=== PATIENT | female | born 1965 | race Caucasian/White ===

== ENCOUNTER → 2020-02-19 14:17 | Outpatient (BNVA) | payer MEDICARE, MEDICAID, SELFPAY | PROVIDERS: Family Provider Nurse Practitioner Family; PCP Nurse Practitioner Family; Visit Provider Urology | DX: C67.0 Malignant neoplasm of trigone of bladder (principal); R33.8 Other retention of urine; N20.2 Calculus of kidney with calculus of ureter | CPT/HCPCS: 81001 ==

== ENCOUNTER → 2020-06-05 13:03 | Outpatient (BNVA) | payer MEDICARE, MEDICAID, SELFPAY | PROVIDERS: Family Provider Nurse Practitioner Family; PCP Nurse Practitioner Family; Referring Provider Dermatology; Visit Provider Dermatology | DX: B35.1 Tinea unguium (principal); D48.9 Neoplasm of uncertain behavior, unspecified; D23.9 Other benign neoplasm of skin, unspecified; L85.8 Other specified epidermal thickening; Z12.83 Encounter for screening for malignant neoplasm of skin | CPT/HCPCS: 11102; 88304; 88305; 99203; 99204 ==

== ENCOUNTER → 2020-06-11 13:10 | Outpatient (BNVA) | payer MEDICARE, MEDICAID, SELFPAY | PROVIDERS: Family Provider Nurse Practitioner Family; PCP Nurse Practitioner Family; Visit Provider Urology | DX: C67.0 Malignant neoplasm of trigone of bladder (principal) | CPT/HCPCS: 81001 ==

== ENCOUNTER → 2021-02-12 10:16 | Outpatient (BNVA) | payer MEDICARE, MEDICAID, SELFPAY | PROVIDERS: Family Provider Nurse Practitioner Family; PCP Nurse Practitioner Family; Visit Provider Urology | DX: C67.0 Malignant neoplasm of trigone of bladder (principal) | CPT/HCPCS: 81003 ==

== ENCOUNTER 2021-03-06 09:17 | Outpatient (CLI) | payer MEDICARE, MEDICAID, SELFPAY ==
--- NOTE | 2021-03-06 09:20 | MM_ITS ---
WS: [id number] BILATERAL SCREENING DIGITAL MAMMOGRAM WITH CAD HISTORY: SCREENING COMPARISON: 09/18/2019 and 09/24/2015 Bilateral CC and MLO views submitted. Computer aided detection analyzed. Breast composition: The breasts are heterogeneously dense, which may obscure small masses. No suspici ous masses, microcalcifications or architectural distortion. Benign calcifications in each breast. Th e asymmetries are stable over several prior years. MM/[place] [id number] IMPRESSION: BI-RADS: 2-Benign FOLLOW UP: 1 Year Follow-up
== END 2021-03-06 09:18 | disposition home or self-care (01) ==
PROVIDERS: Family Provider Nurse Practitioner Family; PCP Nurse Practitioner Family; Visit Provider Family Medicine
DX: Z12.31 Encounter for screening mammogram for malignant neoplasm of breast (principal)
CPT/HCPCS: 77067

== ENCOUNTER → 2021-08-17 09:14 | Outpatient (BNVA) | payer MEDICARE, MEDICAID, SELFPAY | PROVIDERS: Family Provider Nurse Practitioner Family; PCP Nurse Practitioner Family; Visit Provider Urology | DX: C67.0 Malignant neoplasm of trigone of bladder (principal) | CPT/HCPCS: 81003 ==

== ENCOUNTER → 2022-02-25 13:13 | Outpatient (BNVA) | payer MEDICARE, MEDICAID, SELFPAY | PROVIDERS: Family Provider Nurse Practitioner Family; PCP Nurse Practitioner Family; Visit Provider Urology | DX: C67.0 Malignant neoplasm of trigone of bladder (principal); N20.2 Calculus of kidney with calculus of ureter | CPT/HCPCS: 52000; 81003 ==

== ENCOUNTER 2022-09-07 13:07 | Outpatient (CLI) | payer MEDICARE, MEDICAID, SELFPAY ==
--- NOTE | 2022-09-07 13:25 | XR_ITS ---
WS: [id number] Exam: XR KUB [id number] Date/Time of Exam: 09/07/2022 1:26 PM Reason For Exam: stones No bowel obstruction or free air. Tiny calcification superimpose both kidneys apparently representing known renal stones. No sign of organ enlargement. Signs of prior cholecystectomy. Bony structures ar e intact. XR/XR KUB [id number] IMPRESSION: 1. No acute abdominal process. 2. Small calcification superimpose both kidneys and apparently represent known renal stones. 3. Diffuse small nonspecific bilateral pelvic calcifications.
== END 2022-09-07 13:08 | disposition home or self-care (01) ==
LOC: RAD 13:10
PROVIDERS: PCP Nurse Practitioner Family; Visit Provider Urology
DX: N20.9 Urinary calculus, unspecified (principal)
CPT/HCPCS: 52000; 74018

== ENCOUNTER 2022-09-29 10:05 | Outpatient (CLI) | payer MEDICARE, MEDICAID, SELFPAY ==
--- NOTE | 2022-09-29 10:14 | CT_ITS ---
WS: [id number] LDCT LUNG CANCER SCREENING HISTORY: HX OF TOBACCO USE TECHNIQUE: Axial imaging performed from the apices to 1 cm below the costophrenic angles. Coronal and sagittal reformats are submitted with axial MIP series. All CT scans at [facility] use at least one of these dose optimization techniques: automated exposure control; mA and/or kV adjustment per patient size (includes targeted exams where dose is matched to clinical indication); or iterativ e reconstruction. DLP: 80.71 mGy.cm DIvol: Mean CTDIvol: 1.60 (mGy) COMPARISON: None available. Diagnostic quality: Satisfactory Lung Nodules: 2 mm LEFT upper lobe nodule along the fissure with pleural tagging. These are typically benign. No pulmonary nodules or endobronchial lesion. Lungs: No abnormality. Heart: Normal size heart. No pericardial effusion. Other findings: Stent in the LEFT anterior descending coronary artery. Very minimal atherosclerosis t horacic aorta. Normal size pulmonary artery. Small hiatal hernia. Prior cholecystectomy. Bilateral no nobstructing renal calcifications. Splenic granulomata. CT/CT lung screening [id number] IMPRESSION: LUNG-RADS: 2-Benign Appearance or Behavior FOLLOW UP: 12 Month: Continue annual screening with LDCT OTHER FINDINGS (S MODIFIER): None.
== END 2022-09-29 10:06 | disposition home or self-care (01) ==
PROVIDERS: PCP Nurse Practitioner Family; Visit Provider Family Medicine
DX: Z12.2 Encounter for screening for malignant neoplasm of respiratory organs (principal); Z87.891 Personal history of nicotine dependence
CPT/HCPCS: 71271

== ENCOUNTER 2023-01-07 10:03 | Outpatient (CLI) | payer MEDICARE, MEDICAID, SELFPAY ==
--- NOTE | 2023-01-07 10:11 | MM_ITS ---
WS: [id number] SCREENING DIGITAL BREAST TOMOSYNTHESIS MAMMOGRAM WITH CAD HISTORY: SCREENING COMPARISON: 03/06/2021 and 09/18/2019 Bilateral CC and MLO with tomosynthesis and synthetic mammography submitted. Computer aided detection analyzed. Breast composition: The breasts are extremely dense, which lowers the sensitivity of mammography. Pos tsurgical clips in the anterior RIGHT breast. Benign bilateral breast calcifications. Focal area of a rchitectural distortion seen best on the LEFT MLO projection in the anterior breast, just posterior t o the nipple. This needs further evaluation. MM/[place] [id number] IMPRESSION: BI-RADS: 0-Incomplete: Need additional imaging evaluation FOLLOW UP: Need Additional Imaging LEFT breast: Spot compression views (CC and MLO). True ML. Ultrasound to follow if abnormality persists.
== END 2023-01-07 10:04 | disposition home or self-care (01) ==
PROVIDERS: PCP Nurse Practitioner Family; Visit Provider Nurse Practitioner Family
DX: Z12.31 Encounter for screening mammogram for malignant neoplasm of breast (principal)
CPT/HCPCS: 77063; 77067

== ENCOUNTER → 2023-03-10 14:17 | Outpatient (BNVA) | payer MEDICARE, MEDICAID, SELFPAY | PROVIDERS: PCP Nurse Practitioner Family; Visit Provider Urology | DX: N20.9 Urinary calculus, unspecified (principal) | CPT/HCPCS: 81003 ==

== ENCOUNTER 2023-08-05 11:35 | Outpatient (CLI) | payer MEDICARE, SELFPAY ==
--- NOTE | 2023-08-05 11:44 | US_ITS ---
WS: [id number] RENAL ULTRASOUND URINARY BLADDER ULTRASOUND HISTORY: HEMATURIA COMPARISON: None available. TECHNIQUE: 2-D and color Doppler imaging of the kidney submitted. Right kidney: 11.3 cm x 4.8 cm x 5.0 cm. Normal echogenicity with no hydronephrosis or mass. Left kidney: 11.4 cm x 4.9 cm x 4.7 cm. Normal echogenicity with no hydronephrosis or mass. Aorta: Normal. Urinary Bladder: Normal distention. Urinary bladder is well distended. There are no intraluminal fill ing defects. No mass. No post void residual after voiding. IMPRESSION: 1. No renal mass or obstruction. 2. Normal urinary bladder. No intraluminal mass identified. 3. No post void residual.
== END 2023-08-05 11:36 | disposition home or self-care (01) ==
PROVIDERS: PCP Nurse Practitioner Family; Visit Provider Nurse Practitioner Family
DX: R31.9 Hematuria, unspecified (principal)
CPT/HCPCS: 76770; 76857

== ENCOUNTER 2023-09-15 18:13 | Emergency (ER) | payer MEDICARE, SELFPAY ==
[2023-09-15 18:15] VITALS: BP 156/73; PULSE 62; RESP 17; TEMP 37; O2SAT 98; BMI 23.3
--- NOTE | 2023-09-15 18:27 | XRR_ITS ---
PROCEDURE INFORMATION: Exam: XR Abdomen Exam date and time: 09/15/2023 6:46 PM Age: 57 years old Clinical indication: Abdominal pain; Right; Prior surgery; Surgery date: 6+ months; Surgery type: Hysterectomy, cholecystectomy, turbt; Patient HX: RT flank pain; HX kidney stones, bladder cancer TECHNIQUE: Imaging protocol: Radiologic exam of the abdomen. Views: Frontal supine view of the abdomen. 1 View. COMPARISON: CR XR KUB [id number] 09/07/2022 1:39 PM FINDINGS: Gastrointestinal tract: Normal. No bowel dilation. Bones/joints: Unremarkable. XR/XR KUB [id number] IMPRESSION: No acute findings.
--- NOTE | 2023-09-15 18:40 | W.ED.FEMALGU ---
HPI - Female Genitourinary General: Chief complaint: Urogenital-Female Stated complaint: ABD Pain Time Seen by Provider: 09/15/23 18:36 Source: patient Mode of arrival: ambulatory Limitations: no limitations History of Present Illness: 57-year-old female with a history of kidney stones states over the last 2 days she been having right-sided flank pain along with vomiting. States pain sharp in nature rates it a 6 out of 10 states she is mainly concerned she may get dehydrated as she has not been tolerating much p.o. She had seen urologist last week had a CT scan that showed stones in her kidneys not in the ureter at that time. She denies any fevers denies any worsening improving factors. 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 Occasional superficial recurrence fulgurated in clinic She quit smoking. Cervical disc disorder with myelopathy of mid-cervical region Urolithiasis Both renal and ureteral stones historically. Surgical intervention required for ureteral calculi Surgical History History of delivery History of heart artery stent History of lumpectomy History of partial hysterectomy History of thyroidectomy, total History of transurethral destruction of bladder lesion Family History Mother , AT AGE 83 BRAIN ANEURYSM No problems noted. Father , AT AGE 88, [place] Stroke Social History Smoking and tobacco/nicotine status: current every day tobacco/nicotine user e-cigarettes Alcohol intake: never Adopted: No Caregiver/support person: No Lives independently: No Household members: spouse Marital status: Current occupational status: disabled Physical Exam Const: COMMON NORMALS: no acute distress, patient oriented x3 and healthy appearing HENMT: COMMON NORMALS: normocephalic and atraumatic HEAD & SCALP: normocephalic and atraumatic Eye: COMMON NORMALS: conjunctivae normal CONJUNCTIVA: Yes conjunctivae normal Neck/C-Spine: COMMON NORMALS: full ROM and supple Chest: COMMONS NORMALS: normal inspection of the chest Resp: COMMON NORMALS: normal respiratory effort Cardio: COMMON NORMALS: regular rate, regular rhythm and No murmurs present (Cardio) RATE: regular rate RHYTHM: regular rhythm GI: COMMON NORMALS: Normal to inspection, nondistended, normoactive bowel sounds present, Soft to palpation, non-tender and no masses PALPATION: Yes Soft to palpation Extremity: COMMON NORMALS: normal to inspection and full ROM Neuro: COMMON NORMALS: patient oriented x3, moves all extremities and no focal motor deficits Psych: COMMON NORMALS: mental status grossly normal, Normal thought process present and cooperative THOUGHT PROCESS: Normal thought process present Skin: COMMON NORMALS: no rashes or lesions noted and no wounds GENERAL SKIN EXAM: no rashes or lesions noted Course Vital Signs: Vital signs: Vital Signs Temperature 98.6 F 09/15/23 21:06 Pulse Rate 70 09/15/23 21:06 Respiratory Rate 16 09/15/23 21:06 Blood Pressure 119/71 09/15/23 21:06 Pulse Oximetry 96 09/15/23 21:06 Oxygen Delivery Me thod Room Air 09/15/23 18:15 MDM - Female Medical Decision Making Patient presents here with flank pain likely from a kidney stone she has no UTI her pain is improved here we will prescribe her pain meds she is to follow-up with her urologist at [facility] return if worsening she understands agrees plan Medical Records I reviewed the patient's medical records. Lab Data I reviewed the patient's lab results. 09/15/23 18:59 09/15/23 18:59 Radiology Impressions KUB X-Ray 09/15/23 18:27 IMPRESSION: No acute findings. Laboratory Results WBC 13.05 10^3/uL (3.29-11.43) H 09/15/23 18:59 RBC 4.62 10^6/uL (3.85-5.65) 09/15/23 18:59 Hgb 14.70 g/dL (11.27-16.99) 09/15/23 18:59 Hct 45.1 % (36-47) 09/15/23 18:59 MCV 97.6 fl (85-98) 09/15/23 18:59 MCH 31.8 pg (27-33) 09/15/23 18:59 MCHC 32.6 g/dL (30-55) 09/15/23 18:59 RDW 13.1 % (12.1-15.1) 09/15/23 18:59 Plt Count 308 10^3/cmm (157-399) 09/15/23 18:59 MPV 8.4 fL (7.4-10.4) 09/15/23 18:59 Neut % (Auto) 82.9 % 09/15/23 18:59 Lymph % (Auto) 9.9 % 09/15/23 18:59 [place] % (Auto) 6.6 % 09/15/23 18:59 Eos % (Auto) 0.2 % 09/15/23 18:59 Baso % (Auto) 0.2 % 09/15/23 18:59 Neut # (Auto) 10.82 10^3/uL (1.8-7.7) H 09/15/23 18:59 Lymph # (Auto) 1.3 10^3/uL (0.8-4.8) 09/15/23 18:59 [place] # (Auto) 0.9 10^3/uL (0.2-0.9) 09/15/23 18:59 Eos # (Auto) 0.0 10^3/uL (0.0-0.8) 09/15/23 18:59 Baso # (Auto) 0.0 10^3/uL (0.0-0.1) 09/15/23 18:59 Nucleated RBC % (auto) 0 % 09/15/23 18:59 Nucleated RBCs # 0.0 /100WBC 09/15/23 18:59 Sodium 140 mmol/L (136-145) 09/15/23 18:59 Potassium 3.9 mmol/L (3.5-5.1) 09/15/23 18:59 Chloride 101 mmol/L (98-107) 09/15/23 18:59 Carbon Dioxide 25 mmol/L (22-29) 09/15/23 18:59 Anion Gap 17.9 (5-19) 09/15/23 18:59 BUN 21 mg/dL (6-20) H 09/15/23 18:59 Creatinine 1.2 mg/dL (0.5-0.9) H 09/15/23 18:59 GFR Calculation 46.5 mL/min (90-130) L 09/15/23 18:59 Glucose 106 mg/dL (65-115) 09/15/23 18:59 Calculated Osmolality 293 mOsm/kg (285-295) 09/15/23 18:59 Calcium 9.6 mg/dL (8.5-10.5) 09/15/23 18:59 Total Bilirubin 0.5 mg/dL (0.15-1.2) 09/15/23 18:59 AST 25 U/L (0-32) 09/15/23 18:59 ALT 19 U/L (0-33) 09/15/23 18:59 Alkaline Phosphatase 113 U/L (35-105) H 09/15/23 18:59 Total Protein 7.8 g/dL (6.6-8.7) 09/15/23 18:59 Albumin 4.8 g/dL (3.5-5.2) 09/15/23 18:59 Globulin 3.0 g/dL (1.3-4.6) 09/15/23 18:59 Lipase 50 U/L (13-60) 09/15/23 18:59 Urine Color Yellow (Yellow) 09/15/23 19:08 Urine Appearance Clear (CLEAR) 09/15/23 19:08 Urine pH 5 (5-7) 09/15/23 19:08 Ur Specific [place] 1.020 (1.005-1.030) 09/15/23 19:08 Urine Protein 1+ (Negative) H 09/15/23 19:08 Urine Glucose (UA) Norm (Normal) 09/15/23 19:08 Urine Ketones 1+ (Negative) H 09/15/23 19:08 Urine Blood 3+ (Negative) H 09/15/23 19:08 Urine Nitrate Negative (Negative) 09/15/23 19:08 Urine Bilirubin 1+ (Negative) H 09/15/23 19:08 Urine Urobilinogen 1 mg/dL (Negative) H 09/15/23 19:08 Ur Leukocyte Esterase Negative (Negative) 09/15/23 19:08 Urine RBC >100 /hpf (0-2) H 09/15/23 19:08 Urine WBC 0-4 /hpf (0-5) H 09/15/23 19:08 Ur Squamous Epith Cells 5-10 /hpf (0-5) H 09/15/23 19:08 Calcium Oxalate Crystal 5-10 /hpf H 09/15/23 19:08 Amorphous Sediment Not Reportable 09/15/23 19:08 Urine Bacteria Trace /hpf (NONE) 09/15/23 19:08 Urine Mucus 2+ /hpf 09/15/23 19:08 All radiology interpretation(s) finalized by discharge Discharge Plan Discharge Patient Disposition: Home Clinical Impression: Kidney stone Condition: Stable Prescriptions: New hydrocodone-acetaminophen 5-325 mg tablet 1 tab PO Q6H PRN (Reason: pain) Qty: 14 0RF ondansetron 4 mg tablet,disintegrating 4 mg PO Q6H PRN (Reason: nausea and vomiting) Qty: 14 0RF Flomax 0.4 mg capsule 0.4 mg PO DAILY Qty: 4 0RF No Action lamotrigine 200 mg tablet 200 mg PO BID levothyroxine [Synthroid] 50 mcg tablet 50 mcg PO QDAY rosuvastatin 20 mg tablet 20 mg PO QDAY Qty: 30 0RF trazodone 100 mg tablet 100 mg PO QDAY venlafaxine 37.5 mg capsule,extended release 24hr 37.5 mg PO QDAY clopidogrel 75 mg tablet 75 mg PO QDAY Qty: 90 2RF nitroglycerin [Nitrostat] 0.4 mg tablet, sublingual 0.4 mg SUBLINGUAL Q5M PRN (Reason: chest pain) 30 Days Qty: 25 6RF aspirin [Adult Aspirin Regimen] 81 mg tablet,delayed release (DR/EC) 81 mg PO QDAY 90 Days Qty: 90 3RF metoprolol succinate 25 mg tablet extended release 24 hr 25 mg PO .HS Qty: 90 1RF Discharge Orders: Discharge ED (Routine); Ordered 09/15/23 Ordered By: Korby Ren Referrals: Roxanne Mcgregor FNP [Primary Care Provider] - Discharge Diet: Advance as tolerated Discharge Activity: Resume usual activity Patient Instructions: Opioid Safety, Pain Management Coding Level of Care Code ED [employer] for Kalen Eckert
[2023-09-15] MEDS: sodium chloride 0.9% 1,000 ML 999 ML IV (19:01)
[2023-09-15] MEDS: ondansetron 2 mg/ML SDV 2 mL 4 MG IVP (19:01)
[2023-09-15] MEDS: morphine 4 mg/mL SDV 1 mL IVP (19:01)
[2023-09-15 19:09] LABS: Basophils % 0.2 %; Eosinophils % 0.2 %; Hematocrit 45.1 % (36-47); Lymphocytes # 1.3 10^3/uL (0.8-4.8); Lymphocytes % 9.9 %; Mean Corpuscular HGB Conc 32.6 g/dL (30-55); Mean Corpuscular Hemoglobin 31.8 pg (27-33); Mean Corpuscular Volume 97.6 fl (85-98); Mean Platelet Volume 8.4 fL (7.4-10.4); Monocytes # 0.9 10^3/uL (0.2-0.9); Monocytes % 6.6 %; Neutrophils # 10.82 10^3/uL (1.8-7.7); Neutrophils % 82.9 %; Nucleated Red Blood Cells % 0 %; Platelet Count 308 10^3/cmm (157-399); Red Blood Count 4.62 10^6/uL (3.85-5.65); Red Cell Distribution Width 13.1 % (12.1-15.1); White Blood Count 13.05 10^3/uL (3.29-11.43)
[2023-09-15 19:30] LABS: Alanine Aminotransferase 19 U/L (0-33); Albumin Level 4.8 g/dL (3.5-5.2); Alkaline Phosphatase 113 U/L (35-105); Anion Gap 17.9 (5-19); Aspartate Amino Transferase 25 U/L (0-32); Blood Urea Nitrogen 21 mg/dL (6-20); Calcium 9.6 mg/dL (8.5-10.5); Carbon Dioxide 25 mmol/L (22-29); Chloride 101 mmol/L (98-107); Glomerular Filtration Rate 46.5 mL/min (90-130); Glucose 106 mg/dL (65-115); Lipase 50 U/L (13-60); Osmolality Calculated 293 mOsm/kg (285-295); Potassium 3.9 mmol/L (3.5-5.1); Sodium 140 mmol/L (136-145); Total Bilirubin 0.5 mg/dL (0.15-1.2); Total Protein 7.8 g/dL (6.6-8.7)
[2023-09-15 19:48] LABS: Urine Appearance Clear (CLEAR); Urine Color Yellow (Yellow)
[2023-09-15 19:49] LABS: Add Urine Microscopic? YES; Bilirubin Urine 1+ (Negative); Blood Urine 3+ (Negative); Glucose Urine UA Norm (Normal); Ketones Urine 1+ (Negative); Leukocyte Esterase Urine Negative (Negative); Nitrate Urine Negative (Negative); Protein Urine 1+ (Negative); Urobilinogen Urine 1 mg/dL (Negative); pH Urine 5 (5-7)
[2023-09-15 19:50] LABS: Add Urine Culture? Yes; Bacteria Urine TRACE /hpf; Mucus Urine 2+ /hpf; RBC Urine >100 /hpf (0-2); WBC Urine 0-4 /hpf (0-5)
[2023-09-15] MEDS: HYDROmorphone 1 mg/mL INJ 1 mL IVP (20:32)
[2023-09-15] MEDS: tamsulosin 0.4 mg Capsule PO (20:33)
[2023-09-15 21:05] VITALS: BP 119/71; PULSE 70; RESP 16; O2SAT 96
[2023-09-15 21:06] VITALS: BP 119/71; PULSE 70; RESP 16; TEMP 37; O2SAT 96
[2023-09-15] MEDS: HYDROcodone-acetaminophen 5-325 mg Tablet 2 TAB PO (21:06)
[2023-09-15] MEDS: ondansetron 4 MG Tablet PO (21:06)
== END 2023-09-15 21:13 | disposition home or self-care (01) ==
PROVIDERS: Nurse Practitioner Family; Emergency Provider Emergency Medicine; PCP Nurse Practitioner Family
DX: N20.0 Calculus of kidney (principal); Z79.02 Long term (current) use of antithrombotics/antiplatelets; Z79.82 Long term (current) use of aspirin; F17.290 Nicotine dependence, other tobacco product, uncomplicated; I25.10 Atherosclerotic heart disease of native coronary artery without angina pectoris; Z85.51 Personal history of malignant neoplasm of bladder; Z87.442 Personal history of urinary calculi
CPT/HCPCS: 36415; 74018; 80053; 81001; 83690; 85025; 87086; 96361; 96374; 96375; 99284; J1170; J2270; J2405; J7030; Q0162

== ENCOUNTER 2024-06-26 15:03 | Outpatient (CLI) | payer MEDICARE, SELFPAY ==
--- NOTE | 2024-06-26 15:44 | XRR_ITS ---
PROCEDURE INFORMATION: Exam: XR Chest Exam date and time: 06/26/2024 3:47 PM Age: 58 years old Clinical indication: Prior surgery; Surgery date: 6+ months; Surgery type: Stent; Patient HX: Cough x 3 wks, tested positive for covid 1 mo ago TECHNIQUE: Imaging protocol: Radiologic exam of the chest. Views: 2 views. COMPARISON: CT lung screening [id number] 09/29/2022 10:29 AM FINDINGS: Lungs: Unremarkable. No consolidation. Pleural spaces: Unremarkable. No pleural effusion. No pneumothorax. Heart/Mediastinum: Unremarkable. No cardiomegaly. Bones/joints: Unremarkable. XR/XR chest 2V* [id number] IMPRESSION: No acute findings.
== END 2024-06-26 15:04 | disposition home or self-care (01) ==
LOC: RAD 15:05
PROVIDERS: PCP Nurse Practitioner Family; Visit Provider Nurse Practitioner Family
DX: R05.8 Other specified cough (principal)
CPT/HCPCS: 71046

== ENCOUNTER 2024-12-18 11:04 | Outpatient (CLI) | payer SELFPAY ==
--- NOTE | 2024-12-18 11:11 | XRR_ITS ---
PROCEDURE INFORMATION: Exam: XR Abdomen Exam date and time: 12/18/2024 11:20 AM Age: 59 years old Clinical indication: Condition or disease; Kidney or ureter condition; Calculus (stone) in kidney; Prior surgery; Surgery date: 6+ months; Surgery type: Stent; HX of bladder cancer; Additional info: Nephrolithiasis TECHNIQUE: Imaging protocol: Radiologic exam of the abdomen. Views: Frontal supine view of the abdomen. 1 View. COMPARISON: CR XR KUB [id number] 09/15/2023 6:46 PM FINDINGS: Gastrointestinal tract: Normal. No bowel dilation. Intraperitoneal space: Surgical clips in the right upper quadrant. No obvious free air. Organs: Several small calculi in both kidneys. Vasculature: Several small calcifications in the pelvis are highly likely to be phleboliths. However, in the proper clinical setting a distal ureteral calculus may need to be considered. Bones/joints: Unremarkable. XR/XR KUB [id number] IMPRESSION: 1. Several small calculi in both kidneys. 2. Several small calcifications in the pelvis are highly likely to be phleboliths. However, in the proper clinical setting a distal ureteral calculus may need to be considered. 3. No other acute findings.
== END 2024-12-18 11:05 | disposition home or self-care (01) ==
LOC: RAD 11:09
PROVIDERS: PCP Nurse Practitioner Family; Visit Provider Urology
DX: N20.0 Calculus of kidney (principal); Z98.890 Other specified postprocedural states; Z85.51 Personal history of malignant neoplasm of bladder; R93.89 Abnormal findings on diagnostic imaging of other specified body structures
CPT/HCPCS: 74018

== ENCOUNTER 2025-05-03 08:59 | Outpatient (CLI) | payer MEDICARE, MEDICAID, SELFPAY ==
--- NOTE | 2025-05-03 09:29 | XR_ITS ---
WS: [id number] Exam: XR KUB [id number] Date/Time of Exam: 05/03/2025 9:30 AM Reason For Exam: NEPHROLITHIASIS; HX BLADDER CANCER Comparison 12/18/2024. No bowel obstruction or free air. Moderate amount retained stool in the large bowel particularly the sigmoid colon. No sign of organ enlargement. Status post cholecystectomy. Bony structures are intact. XR/XR KUB [id number] IMPRESSION: 1. No acute process. 2. Moderate amount of retained stool in the colon. 3. Several small calcifications visualized over the LEFT renal silhouette that may represent renal stones..
== END 2025-05-03 09:00 | disposition home or self-care (01) ==
LOC: RAD 09:06
PROVIDERS: PCP Nurse Practitioner Family; Visit Provider Urology
DX: N20.0 Calculus of kidney (principal); Z85.51 Personal history of malignant neoplasm of bladder
CPT/HCPCS: 74018

== ENCOUNTER → 2025-05-08 08:37 | Outpatient (BNVA) | payer MEDICARE, MEDICAID, SELFPAY | PROVIDERS: PCP Nurse Practitioner Family; Visit Provider Surgery | DX: K92.2 Gastrointestinal hemorrhage, unspecified (principal); R63.4 Abnormal weight loss; Z86.0100 Personal history of colon polyps, unspecified | CPT/HCPCS: 99204 ==

== ENCOUNTER 2025-05-09 07:18 | Outpatient (CLI) | payer MEDICARE, SELFPAY ==
--- NOTE | 2025-05-09 07:34 | CT_ITS ---
WS: [id number] LDCT LUNG CANCER SCREENING HISTORY: NICOTINE DEPENDENCE TECHNIQUE: Axial imaging performed from the apices to 1 cm below the costophrenic angles. Coronal and sagittal reformats are submitted with axial MIP series. All CT scans at [facility] use at least one of these dose optimization techniques: automated exposure control; mA and/or kV adjustment per patient size (includes targeted exams where dose is matched to clinical indication); or iterative reconstruction. DLP: 47.01 mGy.cm DIvol: Mean CTDIvol: 0.80 (mGy) COMPARISON: 09/29/2022 Diagnostic quality: Satisfactory Lungs: Moderate pulmonary hyperexpansion from emphysema. Reidentified is a 2 mm pleural tag in the along the superior LEFT major fissure. Benign calcified granuloma LEFT upper lobe. No mass or pneumonia. No endobronchial lesions. Heart: Normal size heart with no pericardial effusion.. Coronary artery calcifications, mild. Other findings: Partially calcified nodule RIGHT thyroid. No mediastinal or hilar adenopathy. Mild atherosclerosis aorta. Small hiatal hernia. Prior cholecystectomy. Splenic granulomata. No adrenal mass. Mild increase in thoracic kyphosis. Mild thoracic spondylitic changes. CT/CT lung screening [id number] IMPRESSION: LUNG-RADS: 2-Benign Appearance or Behavior FOLLOW UP: 12 Month: Continue annual screening with LDCT OTHER FINDINGS (S MODIFIER): None. Prior cholecystectomy. Partially calcified RIGHT thyroid nodule. Previously described on a CT from 09/25/2019. Follow-up recommended at that time.
== END 2025-05-09 07:19 | disposition home or self-care (01) ==
PROVIDERS: PCP Nurse Practitioner Family; Visit Provider Family Medicine
DX: Z12.2 Encounter for screening for malignant neoplasm of respiratory organs (principal); F17.210 Nicotine dependence, cigarettes, uncomplicated; J98.4 Other disorders of lung; J43.9 Emphysema, unspecified
CPT/HCPCS: 71271

== ENCOUNTER → 2025-06-25 11:14 | Outpatient (BNVA) | payer MEDICARE, SELFPAY | PROVIDERS: PCP Nurse Practitioner Family; Visit Provider Internal Medicine Cardiovascular Disease | DX: R07.9 Chest pain, unspecified (principal); R00.1 Bradycardia, unspecified | CPT/HCPCS: 93005 ==

== ENCOUNTER 2025-06-28 07:22 | Outpatient (CLI) | payer MEDICARE, SELFPAY ==
[2025-06-28 07:58] VITALS: BMI 22.4
--- NOTE | 2025-06-28 08:21 | ECG_ITS ---
[employer] Test Date: 2025-06-28 Pat Name: Antonietta Clifford Department: Room: Gender: Female Component Engineer: : 1965 Requested By: Kaden Whalen Order Number: [id number] Griselda MD: Eugenie Montaño M.D. Interpretive Statements Lung unchanged pre/post procedure; Intraprocedure shortess of breath; Symptoms resoled by discharge PROCEDURE: At the baseline, the EKG revealed sinus bradycardia with some nonspecific ST-T changes in the anterior leads.. The baseline heart was 49 bpm with a blood pressue of 122/70 mm of Hg Lexiscan was infused over a period of 20 seconds. A total of 0.4 milligrams of Lexiscan was infused. The stress phase was continued for a total of 5 minutes. Heart rate at the end of the stress phase was 58 bpm with a blood pressure 107/58 mm of Hg. The EKG at the peak infusion revealed no significant changes. Sestamibi was injected 20 seconds after the Lexiscan infusion. Heart rate at the end of the recovery phase was 56 bpm with a blood pressure of 111/507mm of Hg. CONCLUSION: 1. No significant EKG changes with the LexiScan infusion 2. No LexiScan induced chest pain or cardiac arrhythmia 3. Normal blood pressure and heart rate response 4. Sestamibi/sestamibi perfusion scan pending; see separate report. Electronically Signed On 06-29-2025 12:16:13 CDT by Eugenie Montaño M.D. [email or web address]
--- NOTE | 2025-06-28 08:22 | NMCV_ITS ---
NM dharmesh perf SPECT r/s* [id number] Antonietta Clifford Age: 59 Gender: F : 1965 Exam Date: 06/28/2025 08:30 Ordering Phys: Kaden Whalen MD ([email or web address]) Technologist: JULIÁN Calderon Exam Location: [facility] Indications: CP STRESS TEST Please see separate stress test report in [facility] for full findings IMAGE PROTOCOL Rest/Stress 1 Lexiscan Day Radiopharmaceutical Dose (mCi) Administration Site Administered by Rest: Tc-99m 10.6 IV JULIÁN Calderon Sestamibi Stress:Tc-99m 32.4 IV Billie Wilson, ELECTRICIAN [employer]IO Sestamibi Rest: 28-Jun-2025 60 Discovery 630 Stress: 28-Jun-2025 30 Discovery 630 0.4mg Lexiscan. Images obtained in supine and prone position. SPECT RESULTS Technical Quality: Good Raw Data Analysis: Normal Image Corrections: No attenuation or motion correction applied Summed Stress Score: 0 Summed Rest Score: 9 Summed Difference Score: 0 PERFUSION FINDINGS Fairly uniform myocardial tracer uptake with the stress imaging both in the supine and prone positions. The rest images showed moderate area of decreased resedate in the apical and some of the mid segments. Most likely this is artifactual. FUNCTIONAL RESULTS (calculated via Gated SPECT) Stress Image LV EF (%): 65 Stress EDV (mL):77 TID: 1 Stress ESV (mL):27 FUNCTIONAL FINDINGS: Segmental wall motion analysis revealing no gross wall motion abnormalities IMPRESSIONS 1. Fairly uniform myocardial tracer uptake with no significant perfusion normalities. Hydration artifacts were noted with the rest imaging. 2. Normal LV ejection fraction of 65%. 3. LV wall motion analysis revealing no gross wall motion abnormalities. 4. Normal LV volume Low probability for coronary ischemia, based on the above findings Dr Eugenie Montaño MD FAC (Electronically Signed) Final Date: 28 June 2025 11:32 S
[2025-06-28 09:12] VITALS: BP 111/57; PULSE 58
--- NOTE | 2025-06-28 14:15 | USCV_ITS ---
Antonietta Clifford Age: 59 Gender: F : 1965 Exam Date: 06/28/2025 10:28 Ordering Phys: Kaden Whalen MD ([email or web address]) Technologist: Exam Location: [facility] [place] Indication: cp sob BP: 127 / 62 HR: 78 Rhythm: Sinus Technical Quality: Adequate MEASUREMENTS (Male / Female) Normal Values 2D ECHO LV Diastolic Diameter PLAX 3.9 cm 4.2 - 5.9 / 3.9 - 5.3 cm IVS Diastolic Thickness 1.1 cm 0.6 - 1.0 / 0.6 - 0.9 cm IVS Systolic Thickness 1.6 cm LVPW Diastolic Thickness 1.3 cm 0.6 - 1.0 / 0.6 - 0.9 cm LVPW Systolic Thickness 1.4 cm LVOT Diameter 2.0 cm LV Ejection Fraction 2D Teich 68.8 % LV Ejection Fraction MOD 4C 59.2 % LV Ejection Fraction MOD 2C 55.7 % LV Ejection Fraction 2C AL 58.1 % LA Diameter 3.2 cm RA Systolic Volume 4C AL 31.8 ml RA Systolic Volume 4C MOD 30.4 ml LA Sys Volume AL 36.9 cm cubed LA Sys Volume Index AL 21.7 cm cubed/m squared Aorta at Sinotubular Diameter 3.2 cm IVC Diameter 1.8 cm M-MODE LA Ao Ratio MM 1.3 AV Cusp Separation MM 2.2 cm DOPPLER AV Peak Velocity 124.5 cm/s LVOT Peak Velocity 89.0 cm/s AV Area Cont Eq vti 2.3 cm squared AV Area Cont Eq pk 2.3 cm squared MV Peak Velocity 97.0 cm/s MV Area PHT 5.2 cm squared Mitral E to A Ratio 1.1 TV Peak Velocity 223.6 cm/s TR Peak Velocity 272.0 cm/s TR Peak Gradient 29.6 mmHg TV Peak E Velocity 81.0 cm/s PV Peak Velocity 83.5 cm/s FINDINGS Left Ventricle Mildly increased left ventricular cavity size. Moderately decreased left ventricular systolic function. Left ventricular ejection fraction is estimated at 45 %. There is basal to distal anterior wall and septal wall severe hypokinesis consistent with ischemic heart disease.Grade I/IV diastolic dysfunction (abnormal relaxation filling pattern), normal to mildly elevated filling pressures. Right Ventricle The right ventricle is normal in size and function. Right Atrium The right atrium is normal in size. Left Atrium Moderately increased left atrial size. Mitral Valve Mildly thickened mitral valve. No mitral valve stenosis. Moderate to severe mitral valve regurgitation. Aortic Valve Structurally normal aortic valve without significant sclerosis or stenosis. There is no aortic regurgitation. Tricuspid Valve Moderate tricuspid valve regurgitation. Pulmonic Valve Structurally normal pulmonic valve without significant stenosis. There is no pulmonic regurgitation. Pericardium Normal pericardium without effusion. Aorta Normal ascending aorta dimension. IVC The inferior vena cava appears normal. CONCLUSIONS Mildly increased left ventricular cavity size. Moderately decreased left ventricular systolic function. Left ventricular ejection fraction is estimated at 45 %. There is basal to distal anterior wall and septal wall severe hypokinesis consistent with ischemic heart disease.Grade I/IV diastolic dysfunction (abnormal relaxation filling pattern), normal to mildly elevated filling pressures. Moderately increased left atrial size. Mildly thickened mitral valve. No mitral valve stenosis. Moderate to severe mitral valve regurgitation. Moderate tricuspid valve regurgitation. There is no pericardial effusion. Right atrial pressure is around 10 mm of mercury. Kaden Whalen MD (Electronically Signed) Final Date: 30 June 2025 15:59 S
== END 2025-06-28 07:23 | disposition home or self-care (01) ==
LOC: CDL 07:29
PROVIDERS: PCP Family Medicine; Visit Provider Internal Medicine Cardiovascular Disease
DX: R07.9 Chest pain, unspecified (principal); Z01.818 Encounter for other preprocedural examination; R06.02 Shortness of breath; Z09 Encounter for follow-up examination after completed treatment for conditions other than malignant neoplasm; I25.10 Atherosclerotic heart disease of native coronary artery without angina pectoris; R00.1 Bradycardia, unspecified; R94.31 Abnormal electrocardiogram [ECG] [EKG]; I08.1 Rheumatic disorders of both mitral and tricuspid valves
CPT/HCPCS: 36415; 78452; 93017; 93306; 96374; A9500; J2785